=== PATIENT | male | born 1980 | race Caucasian/White ===

== ENCOUNTER 2024-01-16 21:39 | Inpatient (IN) | payer OTHER, SELFPAY ==
[2024-01-16] VITALS (9 sets, daily range): BP systolic 148–169; BP diastolic 108–119; BMI 18.7
--- NOTE | 2024-01-16 15:00 | ED.GENMED ---
History of Present Illness
General
Chief Complaint: Cardiac Symptoms
Time Seen by Provider: 01/16/24 15:00
Travel History
Have you had any contact with someone who has COVID-19?: No
Do you have any symptoms of coronavirus? Fever > 100 degrees, chills, cough, shortness of breath, sore throat, loss of taste or smell, muscle aches, or headache?: Yes
Symptoms:: SOB
History of Present Illness
History of Present Illness:
HPI: Patient presents with palpitations with shortness of breath over the last couple days. This is associated with weakness. He reportedly had a heart catheterization in November at [facility]. He went to [facility] because that is where his doctor
for scleroderma is located. He states that the catheterization showed pulmonary pressures over 50 and had a 'leaky valve in the right side of the heart'. He is on mycophenolate, amlodipine, and hydroxychloroquine. He did lose weight over the last
several months but started to put on some weight after starting protein shakes.
EXAM:
GENERAL: The patient appears somewhat weak and debilitated and older than age
HEENT: Slightly dry oral mucosa
CARDIOVASCULAR: 3 out of 6 systolic murmur in the left lower sternal, borderline tachycardia heart rate with frequent ectopy, No chest wall tenderness
PULMONARY: The patient does not appear to be in any significant respiratory distress but is mildly tachypneic, breath sounds are somewhat decreased with shallow effort
ABDOMEN: Soft with no peritoneal signs, no tenderness
NEUROLOGIC: Fair strength all extremities, no coordination deficits, fingers consistent with rheumatoid arthritis
PSYCHIATRIC: Appropriate mental status, normal insight and judgement
EXTREMITIES: Nontender, trace bilateral lower edema, moves all extremities equally, rheumatoid arthritis changes noted
SKIN: No rash, no lesions
ED COURSE:
3:15 PM: I initially evaluated patient
NUMBER AND COMPLEXITY OF PROBLEMS ADDRESSED AT THE ENCOUNTER
� Chronic conditions affecting care: High blood pressure, pulmonary hypertension / scleroderma /interstitial lung disease
� Acute Exacerbation and/or Progression of Chronic Illness: This is a subacute problem/worsening
� Differential Diagnosis includes: Exacerbation of pulmonary hypertension,
AMOUNT AND/OR COMPLEXITY OF DATA TO BE REVIEWED AND ANALYZED
� I performed an independent evaluation of and my interpretation is:
EKG: Sinus 104, polymorphic PVCs with 1 couplet, there is some T wave abnormality noted in V3 through V5
CT:
X-rays: Personally viewed x-ray and agree with radiologist interpretation of bibasilar reticular interstitial opacities most suspicious for chronic fibrosis
Laboratory Studies: White count 9.3, hemoglobin 10.1, troponin elevated 0.092, BNP over 27,000, potassium magnesium very low
Other:
� Review of other/old records: I have asked our director of pulmonary unit to try to get records from [facility]
� Clinical information was obtained by an independent historian: No old records available for review in [facility]
� Prescriptions/Medications Considered but not given:
� Further testing considered but not performed:
RISK OF COMPLICATIONS AND/OR MORBIDITY OR MORTALITY OF PATIENT MANAGEMENT
� Social determinants of health affecting care: Lives at home
� Discussion with other providers: Discussed with cardiology here who feels patient needs to be transferred to tertiary care facility. Spoke to [place] transfer center for [facility] at 5:38 PM. I spoke to the internal medicine
attending who asked me to talk to cardiology attending who asked me to talk to pulmonary who asked me to transfer to a higher level pulmonary facility such as [facility]. I spoke to Dr. Patrick at [facility] and I arranged to have more information sent from
the pulmonary attending at [facility] to [facility]. Ultimately the patient will be accepted to the heart failure service.
� Escalation of care including admission/observation vs risk of discharge considered: The patient appeared generally weak at first and I did give a little bit of fluid at first however BNP came back at over 27,000. Will plan
diuresis now. Replacing magnesium and potassium. Elevated creatinine noted. Blood pressures have been elevated here. He is tachypneic. Ultimately, the patient will be accepted at [facility]. At about 8:45 PM, [facility] tells us that the patient will
not be admitted tonight. Dr. Patrick is the pulmonary hypertension specialist that I spoke to at [facility] who also states they accept the patient and he also contacted the heart failure specialist at [facility] as well. The patient's blood pressure has
remained elevated. Will try nitroglycerin paste as the patient is as patient is persistently hypertensive. As patient will not get a bed tonight at [facility], Dr. Reynolds accepts here for further management.
Phy Exam
Physical Exam
Physical Exam:
See HPI
Course
Orders/Labs/Results
Orders:
Orders
01/16/24 13:54
Electrocardiogram (*1) Urgent
Reason for Study: Palpitations
EKG- Treatment ONCE
01/16/24 15:03
Cardiac Monitoring- Treatment ONCE
01/16/24 15:18
CR Chest - 2 Views Urgent
Comment:
Reason For Exam: sob h/o pulm htn
01/16/24 15:19
0.9% Sodium Chloride 500 ml [Nss] 500 ml IV BOLUS
01/16/24 16:14
Complete Blood Count/With Diff Urgent
Comprehensive Metabolic Panel Urgent
Direct Bilirubin Urgent
Magnesium Urgent
NT-proBNP Urgent
TSH Reflex To Free T4 Urgent
Troponin I Urgent
01/16/24 16:51
Furosemide [Lasix] 40 mg IV NOW STA
01/16/24 17:14
Magnesium Sulfate 4 Gram/100Ml [Magnesium Sulfate] 4 gram in 100 ml IV NOW
Potassium Chloride [KCl] 40 meq Dextrose 5%/Water 250 ml [D5w] 250 ml IV NOW
01/16/24 21:19
Nitroglycerin Ointment [Nitro-Bid] 1 inch TOPICAL NOW STA
01/16/24 22:00
Flush (0.9% Sodium Chloride) [Flush (Nss)] See Dose Instructions IV PER PROTOCOL
Abnormal Lab Results
02/18/24
16:14
RBC 3.15 L 10^6/uL
(4.70-6.10)
Hgb 10.1 L g/dL
(13.0-18.0)
Hct 28.8 L %
(39.0-52.0)
MCH 32.1 H pg
(27.0-31.0)
RDW 18.8 H %
(11.5-14.5)
Abs Immat Gran (auto) 0.1 H 10^3/uL
(0-0.05)
Absolute Neuts (auto) 7.3 H 10^3/uL
(1.4-6.5)
Immature Gran % 0.6 H %
(0-0.5)
Neutrophils % 79.2 H %
(42.2-75.2)
Lymphocytes % 14.5 L %
(20.5-51.1)
Potassium 3.0 L mmol/L
(3.5-5.1)
BUN 33 H mg/dl
(9-20)
Creatinine 2.3 H mg/dL
(0.7-1.3)
Magnesium 1.1 L mg/dl
(1.6-2.3)
Total Bilirubin 2.1 H mg/dl
(0.2-1.3)
Direct Bilirubin 1.0 H mg/dl
(0.0-0.4)
Troponin I 0.092 H* ng/ml
Albumin 3.4 L g/dl
(3.5-5.0)
01/16/24 16:14
01/16/24 16:14
Vital Signs
Initial and Last Documented VS:
Initial Vital Signs
Temp Pulse Resp BP Pulse Ox
97.8 F 66 18 169/113 99
01/16/24 13:46 01/16/24 13:46 01/16/24 13:46 01/16/24 13:46 01/16/24 13:46
Last Documented Vital Signs
Temp Pulse Resp BP Pulse Ox
97.8 F 107 19 164/111 98
01/16/24 13:46 01/16/24 21:15 01/16/24 21:15 01/16/24 21:00 01/16/24 21:15
*Critical Care Note
Total Time (30-74mins, 75-104mins- exclusive of procedures): Not Applicable
ED Attending Note
-
Portions of this chart may have been created with voice recognition software.� Occasional wrong word or��sound alike� substitutions may have occurred due to the inherent limitations of voice recognition software.
Discharge Plan
Departure
Patient Disposition: Admit
Date of Disposition: 01/16/24
Time of Disposition: 17:08
Presentation/result/management discussed w/ accepting MD/DO: Hospitalist
Discharge Problem:
Pulmonary hypertension
Prescriptions:
No Action
amlodipine 5 mg Tablet
5 mg PO DAILY
mycophenolate mofetil 500 mg tablet
500 mg PO BID
omeprazole 20 mg Capsule,Delayed Release(Dr/Ec)
20 mg PO DAILY
hydroxychloroquine 200 mg Tablet
300 mg PO DAILY
cholecalciferol (vitamin D3) 25 mcg (1,000 unit) Tablet
25 mcg PO DAILY PRN (Reason: supplement)
Referrals:
Hernán Branch MD [Family Provider] -
Interventions
Interventions:
*Risk Screen - Suicide Last Done: 01/16/24 15:26
*General Assessment Last Done: 01/16/24 15:27
*Neglect/Abuse Screening Last Done: 01/16/24 15:26
*ED COVID-19 Vaccine History Last Done: 01/16/24 13:46
ED- Pulmonary Assessment Last Done: 01/16/24 15:26
ED- Cardiac Assessment Last Done: 01/16/24 15:26
[2024-01-16] MEDS: NSS 500 IV (16:25)
[2024-01-16 16:26] LABS: % Basophils 0.4 % (0-2); % Eosinophils 0.3 % (0-6); % Immature Granulocytes 0.6 % (0-0.5); % Lymphocytes 14.5 % (20.5-51.1); % Neutrophils 79.2 % (42.2-75.2); Absolute Immature Granulocytes 0.1 10^3/uL (0-0.05); Absolute Lymphocytes 1.3 10^3/uL (1.2-3.4); Absolute Monocytes 0.5 10^3/uL (0.1-0.6); Absolute Neutrophils 7.3 10^3/uL (1.4-6.5); Hematocrit 28.8 % (39.0-52.0); Hemoglobin 10.1 g/dL (13.0-18.0); Mean Corp Hgb Conc. 35.1 g/dL (33.0-37.0); Mean Corpuscular Hgb 32.1 pg (27.0-31.0); Mean Corpuscular Volume 91.4 fL (80.0-94.0); Mean Platelet Volume 9.3 fL (7.4-10.4); Nucleated Red Blood Cells % 0 % (-); Platelet Count 161 10^3/uL (130-400); Red Blood Cell Count 3.15 10^6/uL (4.70-6.10); Red Cell Dist. Width 18.8 % (11.5-14.5); White Blood Cell Count 9.3 10^3/uL (4.8-10.8)
[2024-01-16 16:49] LABS: NT-proBNP > 27000 pg/ml; Troponin I 0.092 ng/ml
[2024-01-16 16:56] LABS: ALT (SGPT) 25 U/L (0-50); AST (SGOT) 43 U/L (17-59); Albumin 3.4 g/dl (3.5-5.0); Alkaline Phosphatase 88 U/L (38-126); Blood Urea Nitrogen 33 mg/dl (9-20); Calcium 9.2 mg/dl (8.4-10.2); Carbon Dioxide 24 mmol/L (22-30); Chloride 99 mmol/L (98-107); Glucose 80 mg/dl (70-99); Magnesium 1.1 mg/dl (1.6-2.3); Sodium 135 mmol/L (135-145); Total Bilirubin 2.1 mg/dl (0.2-1.3); Total Protein 7.6 g/dl (6.3-8.2); eGFR 35.47
[2024-01-16] MEDS: LASIX 40 MG IV (17:00)
[2024-01-16 17:08] LABS: TSH Reflex To Free T4 3.23 uIU/ml (0.47-4.68)
[2024-01-16] MEDS: KCL 270 MEQ IV (17:27)
[2024-01-16] MEDS: MAGNESIUM SULFATE 100 IV (17:31)
[2024-01-16] MEDS: NITRO-BID 1 INCH TOPICAL (21:22)
--- NOTE | 2024-01-16 21:23 | HPS.HSE ---
Addendum entered and electronically signed by Gilson Reynolds MD 01/17/24 21:46:
DCA card aware upon admission - consult is depend upon how soon partient is going to [facility]
�
Original Note:
Family Physician
-
Family Physician: Hernán rBanch MD
Chief Complaint
-
fatigue, weakness.
History of Present Illness
43M HX Scleroderma, on mycophenolate, amlodipine, and hydroxychloroquine recent card cath in [facility] , report severe PHT PASP over 50,Valvular leahage at Heart at [facility] in Nov pw fatigue, weakness. ER noted PVCs, low K and Low Mg. and Renal
failure. K and Mg are repleted. Reported shortness of breath over the last couple days. He did lose weight over the last several months but started to put on some weight after starting protein shakes.
DCA card suggests TF to tertiary center.
Per ER attd , patiant is accepted by Dr. Patrick at [facility]
ER attd will complete papar work
Ultimately the patient will be accepted to the heart failure service.
Medical History
Past Medical History
Past Medical History: Reports Other (scleroderma, PHT)
Past Surgical History: Reports Other
Social History
Tobacco: Non-smoker
Alcohol: None
Drug: None
Family History
Family History: Not pertinent
Allergies / Home Medications
Allergies reflects when Allergies were last updated in [employer].
Home Medications with original date entered in [employer]
Allergy/Medication List:
Allergies
Allergy/AdvReac Type Severity Reaction Status Date / Time
amoxicillin Allergy Anaphylaxis Verified 01/16/24 13:46
Penicillins Allergy Anaphylaxis Verified 01/16/24 13:46
Home Medications
amlodipine 5 mg tablet 5 mg PO DAILY 01/16/24
cholecalciferol (vitamin D3) 25 mcg (1,000 unit) tablet 25 mcg PO DAILY PRN supplement 01/16/24
hydroxychloroquine 200 mg tablet 300 mg PO DAILY 01/16/24
mycophenolate mofetil 500 mg tablet 500 mg PO BID 01/16/24
omeprazole 20 mg capsule,delayed release 20 mg PO DAILY 01/16/24
Review of Systems
-
Constitutional: Reports Fatigue
EENT: Reports No Symptoms
Respiratory: Reports See HPI
Cardiac: Reports See HPI
Abdomen/GI: Reports No Symptoms
: Reports No Symptoms
Musculoskeletal: Reports No Symptoms
Skin: Reports No Symptoms
Neurological: Reports No Symptoms
Endocrine: Reports No Symptoms
Hematologic/Lymphatic: Reports No Symptoms
Psych: Reports No Symptoms
Physical Exam
Vital Signs
Vital Signs
Temp Pulse Resp BP Pulse Ox
97.8 F 107 19 164/111 98
01/16/24 13:46 01/16/24 21:15 01/16/24 21:15 01/16/24 21:00 01/16/24 21:15
Physical Exam
General: Other (see below )
Laboratory Results
-
01/16/24 16:14
01/16/24 16:14
Laboratory Results
Total Bilirubin 2.1 mg/dl (0.2-1.3) H 01/16/24 16:14
AST 43 U/L (17-59) 01/16/24 16:14
ALT 25 U/L (0-50) 01/16/24 16:14
Alkaline Phosphatase 88 U/L (38-126) 01/16/24 16:14
Troponin I 0.092 ng/ml H* 01/16/24 16:14
Data Reviewed
-
Diagnostic Radiology: Report Reviewed by me
Medical Tests (Nuc Med, Echo, EKG etc): Report Reviewed by me
Lab Data: Labs Reviewed by me
Impression/Plan
-
Reviewed VS: Afebrile, ST, 150/110
PE
Gen: weak and frail looking
HEENT: dry OM
Neck:
Lungs: significant respiratory distress but is mildly tachypneic
Cor: ST, systolic murmur in the left lower sternal,
Abdomen: Soft with no peritoneal signs, no tenderness
TERRY CLOTH CUTTER HAND: AAO3
MS: trace bilateral lower edema,
Psych:nl mood
Data
Hgb 10.1
Plt 160
K 3
Mg 1.1
Cr 2.2
eGFR 35
TPNI 0.092
proBNP > 27 K
CXR
Bibasilar reticular interstitial opacities most suspicious for chronic fibrosis.
Nl TSH
EKG report
SINUS TACHYCARDIA WITH FREQUENT , AND CONSECUTIVE PREMATURE VENTRICULAR
COMPLEXES
LEFT ATRIAL ENLARGEMENT
INCOMPLETE RIGHT BUNDLE BRANCH BLOCK
ST and T WAVE ABNORMALITY, CONSIDER LATERAL ISCHEMIA
ABNORMAL ECG
NO PREVIOUS ECGS AVAILABLE
No prior admission to :
ASSESSMENT & PLAN
[facility]/ Dr. Dr. Patrick, eventually to HF service
Completed papar work by Dr Short ER
Dyspnea , Fatigue, weakness and effort intolerance with trace bilateral lower edema,
Suspect decompensated RHF insetting of Pul HTN 2/2 underlying scleroderma
Plus or minus Biventricular HF due to interventricular dependency suggested by significant pro BNP > 27K reflects very high LVEDP
- cont. IV Lasix 40 daily
- daily BMP, IPS and Wt
- [facility] card aware - consult is depend upon availably of bed [facility]
Renal Insufficiency suspect cardiorenal syndrome due to acute RHF plus or minus Biventricular HF
- F/U daily BMP with IV diuresis
- To consider Renal consult in AM if he is still around
Hypokalemia s/p IV KCL 40
Hypomagnesemia s/p IV Mg
Underlying PHT- severe ?
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
- cont. mycophenolate, amlodipine, and hydroxychloroquine
DVT Px: SQH
Code: Full
IMU
[2024-01-16] MEDS: TYLENOL 1000 MG PO (21:36)
--- NOTE | 2024-01-16 22:30 | PTCARENOTE ---
Pt arrived from ED via stretcher,ambulated x1 assist to bed. c/o mild dizziness while oob. aaox3, cooperative. denies cp or sob. pox 98% on RA. oriented to room. call correa within reach. girlfriend at the bedside.
[2024-01-17] VITALS (26 sets, daily range): BP systolic 144–197; BP diastolic 90–134; BMI 18.8
[2024-01-17] MEDS: APRESOLINE 5 MG IV ×4 (03:16→20:21)
[2024-01-17] MEDS: TYLENOL 650 MG PO (03:16)
[2024-01-17 03:39] LABS: % Basophils 0.6 % (0-2); % Eosinophils 1.3 % (0-6); % Immature Granulocytes 0.5 % (0-0.5); % Lymphocytes 16.5 % (20.5-51.1); % Monocytes 5.9 % (1.7-9.3); % Neutrophils 75.2 % (42.2-75.2); Absolute Basophils 0.1 10^3/uL (0-0.2); Absolute Eosinophils 0.1 10^3/uL (0-0.7); Absolute Lymphocytes 1.4 10^3/uL (1.2-3.4); Absolute Monocytes 0.5 10^3/uL (0.1-0.6); Absolute Neutrophils 6.4 10^3/uL (1.4-6.5); Hematocrit 25.7 % (39.0-52.0); Hemoglobin 9.2 g/dL (13.0-18.0); Mean Corp Hgb Conc. 35.8 g/dL (33.0-37.0); Mean Corpuscular Hgb 32.2 pg (27.0-31.0); Mean Corpuscular Volume 89.9 fL (80.0-94.0); Nucleated Red Blood Cells % 0 % (-); Platelet Count 161 10^3/uL (130-400); Red Blood Cell Count 2.86 10^6/uL (4.70-6.10); Red Cell Dist. Width 18.6 % (11.5-14.5); White Blood Cell Count 8.5 10^3/uL (4.8-10.8)
[2024-01-17 04:21] LABS: Calcium 8.8 mg/dl (8.4-10.2)
[2024-01-17] MEDS: CELLCEPT 500 MG PO ×2 (05:53→20:20)
[2024-01-17] MEDS: NORVASC 5 MG PO (05:53)
[2024-01-17] MEDS: LASIX 40 MG IV (05:54)
[2024-01-17] MEDS: HEPARIN SC (05:57)
[2024-01-17] MEDS: HEPARIN 5000 UNITS SC ×2 (05:57→20:21)
[2024-01-17] MEDS: CELLCEPT PO (05:57)
[2024-01-17] MEDS: NORVASC PO (05:57)
[2024-01-17] MEDS: DILAUDID 0.5 MG IV (06:03)
--- NOTE | 2024-01-17 06:09 | PTCARENOTE ---
Pt continues to c/o headache, states 'it is hurting behind my right eye.' BP: 160/116. Millicent GAINES made aware. Dilaudid x1 now ordered and ordered to give am medications now. Pt aware.
--- NOTE | 2024-01-17 08:51 | WOUNDNOTE ---
R FOOT (MEDIAL PLANTAR)
--- NOTE | 2024-01-17 08:51 | WOUNDNOTE ---
Homer BENZ (BONE EXPOSED)(shadow at L side of photo)
--- NOTE | 2024-01-17 08:51 | WOUNDNOTE ---
R 2ND TOE (MEDIAL)
--- NOTE | 2024-01-17 08:52 | WOUNDNOTE ---
L FOOT (PLANTAR MEDIAL)
--- NOTE | 2024-01-17 08:53 | WOUNDNOTE ---
[facility] RN note: Patient admitted with HF, DEREK vs CKD. Patient lives with his girlfriend.
See H&P for complete history.
PMH: PHT, scleroderma on mycophenolate, cardiac cath, 11/2023, renal failure.
Wound Location and type/assessment: Patient admitted with: R judge full thickness ulcer to yellow colored bone, small yellow drainage with mild odor. Patient stated he's had a couple of months. He stated he had a spider bite 10 years ago but not at
that location. R and L medial planter black scabbed abrasions and R medial 2nd toe black scabbed abrasion from trauma. Trace LE edema (L>R). +Palpable pedal pulses. Skin discolored red on sacrum,perineum, groin folds suspect from dry skin/psoriasis?
Appetite: Fair. Patient is thin.
Pressure redistribution devices in place: Centrella Max air. Patient is mobile.
Plan: Dressing changed RLE. Patient instructed pressure injury prevention measures.
Will confirm orders with hospitalist and update nurse.
Care plan to be updated and will follow as needed.
Note to case management requested for discharge: VN if patient qualifies.
Recommend follow up at wound care center upon discharge.
--- NOTE | 2024-01-17 09:05 | WOUNDNOTE ---
[facility] RN note: Updated Dr. Patino re: R judge wound to bone suspect chronic osteomyelitis, trace LE edema L>R. Dr. Patino stated patient is going to be transferred to [place] and he will pass this information onto physician at [place]. Dr. Patino approved
local wound care and bilateral knee high Tubigrip as tolerated (may remove q hs).
--- NOTE | 2024-01-17 09:06 | W.PN.HOSP.TC ---
Today's Communication/Plan
-
[facility]charge to [facility] when bed is available
Assessment / Plan
Assessment / Plan
Dyspnea , Fatigue,� weakness� and effort intolerance� with trace bilateral lower edema,
Suspect decompensated RHF insetting of Pul HTN 2/2 underlying scleroderma
Plus or minus Biventricular HF due to interventricular dependency suggested by significant� pro BNP > 27K reflects very high LVEDP �
- cont. IV Lasix 40 daily
- daily BMP, I&O's and Wt
- DCA card aware - consult is depend upon availably of bed at [facility]�
Renal Insufficiency suspect cardiorenal syndrome due to acute RHF plus or minus Biventricular HF
- F/U daily BMP with IV diuresis
- To consider Renal consult if he is still around
Hypertension ? Primary-elevated this morning. Patient currently on Norvasc at 5 mg will uptitrate as needed.
Hypokalemia-replete
Hypomagnesemia-replete
Underlying PHT- severe ?
Suspect Group IV� PHT with unclear and or due to systemic disorder like scleroderma
- cont. mycophenolate, amlodipine, and hydroxychloroquine
�
DVT Px: SQH
Code: Full
IMU
Patient is accepted to [facility]/ Dr.� Dr. Patrick, eventually to HF service
Completed papar work by Dr Short [facility]
Anticipated Discharge: Today
Subjective/Interval History
-
Date of Service: January 17, 2024
Admitted to last night for fatigue weakness.
Suspect related to severe pulmonary hypertension. Case was discussed with [facility] and patient has been accepted. Currently here pending bed availability.
He feels little loopy secondary to Dilaudid he received for pain. His pain is more headache.
With Lasix has been peeing quite a bit feels his breathing is better.
No chest pain.
Today he has his stomach reflux symptoms. He also feels nauseous with it. No abdominal pain.
Objective Data
-
Labs:
Laboratory Results
01/17/24 01/17/24
03:21 09:02
WBC 8.5 Pending
Hgb 9.2 L Pending
Hct 25.7 L Pending
Plt Count 161 Pending
Sodium Pending
Potassium Pending
Chloride Pending
Carbon Dioxide Pending
BUN Pending
Creatinine Pending
Glucose Pending
Calcium 8.8 Pending
Vital Signs:
Vital Signs
Temp Pulse Resp BP Pulse Ox
97.4 F 103 17 160/116 87
01/17/24 03:23 01/17/24 03:00 01/17/24 03:00 01/17/24 05:54 01/17/24 03:00
I&O
01/16/24 01/17/24 01/18/24
06:59 06:59 06:59
Output Total 600 / 600
Balance -600 / -600
Review of Systems
-
Constitutional: Denies Fever
EENT: Denies Sore Throat
Respiratory: Reports Trouble Breathing (improved)
Cardiac: Denies Chest Pain or Palpitations
Neuro: Denies Dizzy
Physical Exam
-
General: No Apparent Distress
HEENT: Moist Mucous Membranes
Respiratory: Clear to Auscultation
Cardiac: Regular Rhythm and S1/S2; Negative Tachycardic
GI: Soft and Nontender
Neuro: AO x 3
Data Reviewed
-
Labs: Labs Reviewed by me
--- NOTE | 2024-01-17 09:37 | PTCARENOTE ---
Vital signs pulled over from 0300 from previous shift. Cannot verify accuracy.
[2024-01-17] MEDS: PROTONIX 20 MG PO (09:43)
[2024-01-17] MEDS: PLAQUENIL 300 MG PO (09:43)
[2024-01-17 10:07] LABS: Hematocrit 27.7 % (39.0-52.0); Hemoglobin 9.5 g/dL (13.0-18.0); Mean Corp Hgb Conc. 34.3 g/dL (33.0-37.0); Mean Corpuscular Hgb 32.3 pg (27.0-31.0); Mean Corpuscular Volume 94.2 fL (80.0-94.0); Mean Platelet Volume 9.7 fL (7.4-10.4); Platelet Count 163 10^3/uL (130-400); Red Blood Cell Count 2.94 10^6/uL (4.70-6.10); Red Cell Dist. Width 18.6 % (11.5-14.5); White Blood Cell Count 8.2 10^3/uL (4.8-10.8)
[2024-01-17 10:36] LABS: Blood Urea Nitrogen 33 mg/dl (9-20); Calcium 9.1 mg/dl (8.4-10.2); Carbon Dioxide 25 mmol/L (22-30); Chloride 97 mmol/L (98-107); Estimated Creatinine Clearance 35 ml/min; Glucose 120 mg/dl (70-99); Magnesium 2.2 mg/dl (1.6-2.3); Potassium 3.1 mmol/L (3.5-5.1); Sodium 134 mmol/L (135-145); eGFR 32.09
--- NOTE | 2024-01-17 11:34 | CM ---
Patient with Hx Scleroderma with Dx suspected decompensated RHF in setting of pulmonary hypertension, suspected cardiorenal syndrome.
Met with patient and SO Genna;
the patient resides with his SO in a 2 story house with 2 FRANCIA.
He had been independent in ADLs and ambulation.
He has no DME or prior VN.
PCP - Hernán Branch
Pharmacy - [facility]
The patient and SO are aware of plan to transfer to [facility].
Ambulance forms completed - on chart.
Plan transfer to [facility] when bed available.
[2024-01-17] MEDS: KCL 270 MEQ IV (18:07)
--- NOTE | 2024-01-17 19:51 | PTCARENOTE ---
Pt is still awaiting ready bed at [facility], T3 transfer center called to request update. Pt and family members at bedside updated as well. Pt has remained AOx3- pleasant and cooperative, 1 episode nausea/vomiting with brown emesis, Dr. Patino aware. K
Isrrael infusing for K+of 3.1 this afternoon. Pt with SR on tele, frequent PVCs, occ in trigeminy, BPs remain elevated. PRN Hydralazine administered as needed for HTN-please see MAR for details. Call correa in reach, no needs communicated at this time.
Continuing to closely monitor.
[2024-01-18] VITALS (19 sets, daily range): BP systolic 142–172; BP diastolic 105–125; BMI 18.2
[2024-01-18] MEDS: APRESOLINE 5 MG IV ×2 (01:46→10:49)
--- NOTE | 2024-01-18 05:20 | PTCARENOTE ---
assumed care of patient, pt is able to make needs known. VSS. CELESTIN called this AM for patient status update. no bed available yet.
[2024-01-18 05:41] LABS: Hemoglobin 9.5 g/dL (13.0-18.0); Mean Corp Hgb Conc. 33.9 g/dL (33.0-37.0); Mean Corpuscular Hgb 31.9 pg (27.0-31.0); Mean Platelet Volume 9.8 fL (7.4-10.4); Platelet Count 165 10^3/uL (130-400); Red Blood Cell Count 2.98 10^6/uL (4.70-6.10); Red Cell Dist. Width 19.2 % (11.5-14.5); White Blood Cell Count 8.1 10^3/uL (4.8-10.8)
[2024-01-18 06:09] LABS: Blood Urea Nitrogen 35 mg/dl (9-20); Calcium 9.3 mg/dl (8.4-10.2); Carbon Dioxide 28 mmol/L (22-30); Chloride 96 mmol/L (98-107); Estimated Creatinine Clearance 33 ml/min; Glucose 106 mg/dl (70-99); Potassium 3.4 mmol/L (3.5-5.1); Sodium 135 mmol/L (135-145); eGFR 30.62
--- NOTE | 2024-01-18 08:36 | W.PN.HOSP.TC ---
Addendum entered and electronically signed by Drew Patino MD 01/21/24 15:34:
Per ASPEN/AND guidelines, pt meets for mild malnutrition in the context of chronic illness as evidenced by 21 .1% weight loss x 1 year, muscle loss.
Suspicion was acute on chronic RHF on admission
Addendum entered and electronically signed by Drew Patino MD 01/18/24 14:49:
Called accepting team at [facility] he spoke with Dr. Ty
With the cardiology updated about the concern of renal crisis with scleroderma and initiation of OLU inhibitor's. Went over the blood pressure changes and the creatinine changes as well. There are still waiting for a bed.
Original Note:
Today's Communication/Plan
-
Consult renal
Check UA
CW rest of treatments
Hold lasix
Assessment / Plan
Assessment / Plan
Dyspnea , Fatigue,� weakness� and effort intolerance� with trace bilateral lower edema,
Suspect decompensated RHF insetting of Pul HTN 2/2 underlying scleroderma
Plus or minus Biventricular HF due to interventricular dependency suggested by significant� pro BNP > 27K
Improved weight by 4 pounds. Feeling better with regards to shortness of breath.
- on IV Lasix 40 daily - will hold till reviewed by nephro -see below
- Pt wt last month is 127 lbs and now 137 lb but with raising Cr and respiratory thompson being stable and oxygenating okay would hold Lasix today
- daily BMP, I&O's and Wt
- DCA card aware - consult is depend upon availably of bed at [facility]�
DEREK on CKD
Last known Cr 0.66 from 11/2023 from my patient chart on his phone
With elevated blood pressure I am concerned about her scleroderma renal crisis.
Check urinalysis
Consult nephrology
Hypertension ? Primary-uncontrolled. Patient currently on Norvasc at 5 mg. Concerned about renal scleroderma crisis. Will consult nephrology and consider OLU inhibitors.
Hypokalemia-replete
Hypomagnesemia-repleted
Underlying PHT- PHT with unclear and or due to systemic disorder like scleroderma
Not on specific treatments
Scleroderma
- cont. mycophenolate, and hydroxychloroquine
�
DVT Px: SQH
Code: Full
IMU
Patient is accepted to [facility]/ Dr.� Dr. Patrick, eventually to service
Completed papar work by Dr Short [facility]
DW RN
DW Renal
Anticipated Discharge: Today
Subjective/Interval History
-
Date of Service: January 18, 2024
Patient is feeling improved compared to what he was at home. His breathing is improved.
He had nausea and vomiting yesterday which he thinks is related to pain medication. Later on in the day he was able to eat and keep everything down.
Denies any chest pain or palpitations.
Objective Data
-
Labs:
Laboratory Results
01/18/24
05:22
WBC 8.1
Hgb 9.5 L
Hct 28.0 L
Plt Count 165
Sodium 135
Potassium 3.4 L
Chloride 96 L
Carbon Dioxide 28
BUN 35 H
Creatinine 2.6 H
Glucose 106 H
Calcium 9.3
Vital Signs:
Vital Signs
Temp Pulse Resp BP Pulse Ox
97.5 F 111 21 159/120 98
01/18/24 07:45 01/18/24 08:00 01/18/24 08:00 01/18/24 08:00 01/18/24 08:00
I&O
01/17/24 01/18/24 01/19/24
06:59 06:59 06:59
Intake Total 580 / 580
Output Total 600 / 600
Balance -
Review of Systems
-
Constitutional: Denies Fever or Chills
EENT: Denies Sore Throat
Respiratory: Denies Cough
Abdomen/GI: Denies Abdominal Pain
Neuro: Denies Dizzy
Physical Exam
-
General: No Apparent Distress
HEENT: Moist Mucous Membranes
Respiratory: Crackles (Here few basilar crackles more evident in the left base today) and Non Labored Respirations; Negative Wheezes or Accessory Resp Muscle Use
Cardiac: Regular Rhythm and S1/S2
GI: Soft
Neuro: AO x 3
Data Reviewed
-
Labs: Labs Reviewed by me
[2024-01-18] MEDS: PLAQUENIL 300 MG PO (08:40)
[2024-01-18] MEDS: HEPARIN 5000 UNITS SC ×2 (08:40→19:12)
[2024-01-18] MEDS: CELLCEPT 500 MG PO ×2 (08:41→19:12)
[2024-01-18] MEDS: PROTONIX 20 MG PO (08:41)
[2024-01-18] MEDS: NORVASC 5 MG PO ×2 (08:45→19:13)
--- NOTE | 2024-01-18 08:52 | PN.CDI ---
CDI
- -
CDI:
Physician Documentation Request
Admit Date: 01/16/24 21:39
Dear Doctor Sukumar,
Patient admitted for pulmonary hypertension.
Please review the following and provide your response in the progress notes.
Clinical Indicators:
Height:6' 1'
Weight:137 lbs
BMI:18.2
Other Clinical Notes:
ED Physician Documentation: 'He did lose weight over the last several months but started to put on some weight after starting protein shakes....The patient appears somewhat weak and debilitated and older than age'
If possible, please provide an associated diagnosis related to the abnormal BMI, such as:
Cachectic
Underweight
BMI is not significant
Other
BMI < or = to 19
Underweight
Weight Loss
Cachectic
Anorexia
Use of terms such as suspected, likely, concern for, or probable (associated with a specific diagnosis that is being evaluated, monitored, or treated as if it exists) are acceptable and can be coded in the inpatient setting, when documented at the
time of discharge.
Thank you,
Aarti Mendez RN, BSN
CDI Specialist
Available via [place] text
Please use your independent medical judgment in providing your response.
--- NOTE | 2024-01-18 08:57 | PN.CDI ---
CDI
- -
CDI:
Physician Documentation Request
Admit Date: 01/16/24 21:39
Dear Doctor Sukumar,
Patient admitted with pulmonary hypertension.
01/16 Hospitalist PN: 'Suspect decompensated RHF insetting of Pul HTN 2/2 underlying scleroderma
Plus or minus Biventricular HF due to interventricular dependency suggested by significant� pro BNP > 27K reflects very high LVEDP'
Clarify which of the following accurately represents the acuity of the right heart failure. Possible options might include:
Acute
Acute on chronic
Other
Use of terms such as suspected, likely, concern for, or probable (associated with a specific diagnosis that is being evaluated, monitored, or treated as if it exists) are acceptable and can be coded in the inpatient setting, when documented at the
time of discharge.
Thank you,
Aarti Mendez RN, BSN
CDI Specialist
Available via [place] text
Please use your independent medical judgment in providing your response.
--- NOTE | 2024-01-18 10:20 | PN.CDI ---
CDI
- -
CDI:
Physician Documentation Request
Admit Date: 01/16/24 21:39
Dear Doctor Sukumar,
Patient admitted for pulmonary hypertension.
01/17 Medical Device Assessment: 'Per ASPEN/AND guidelines, pt meets for mild malnutrition in the context of chronic illness as evidenced by 21 .1% weight loss x 1 year, muscle loss.'
If possible, please provide in your progress notes, additional specificity regarding the severity of the malnutrition:
Mild malnutrition
Other
Use of terms such as suspected, likely, concern for, or probable (associated with a specific diagnosis that is being evaluated, monitored, or treated as if it exists) are acceptable and can be coded in the inpatient setting, when documented at the
time of discharge.
Thank you,
Aarti Mendez RN, BSN
CDI Specialist
Available via [place] text
Please use your independent medical judgment in providing your response.
--- NOTE | 2024-01-18 10:30 | CON.MD ---
Consultation - Medical
-
IMP:
DEREK Last known Cr 0.66 from 12/23/2023 from my patient chart on his phone
Hypertension -new
Hypokalemia
Hypomagnesemia
Underlying PHT
Scleroderma and RA- mycophenolate,� and hydroxychloroquine follow at [facility]
Plan:
A/w sob, palpitations and HTN
[place] to have mild hypervolemia s/p lasix mild improvement of symp
BP are significantly high no h/o HTN raises concern of scleroderma renal crisis
AKI_cr baseline 0.6 in Nov now increasing to 2.6, note heart cath done at [facility] on 12/23
reports subjectively non oliguric
check UA, Fena, renal duplex , follow bladder scan
CXR shows fibrosis changes, BNP >27k on admit -will need echo if he still here
HTN-cont CCB, will start ACEI with concern of renal crisis with close monitoring of cr
replace k and mg repleted
cont MMF and HCQ
Await transfer to [facility]
[id number]
[2024-01-18] MEDS: KCL 40 MEQ PO (10:49)
[2024-01-18] MEDS: CAPOTEN 6.25 MG PO ×2 (12:03→19:14)
[2024-01-18 14:19] LABS: Urine Albumin 2+ (Neg - Trace); Urine Bilirubin 1+ (Negative); Urine Character Clear (Clear); Urine Color Yellow; Urine Glucose Negative (Negative); Urine Ketone Negative (Negative); Urine Leukocyte Negative (Negative); Urine Nitrite Negative (Negative); Urine Occult Blood 2+ (Negative); Urine Specific Gravity 1.015 (<1.030); Urine Urobilinogen 2+ (Neg - 1+)
[2024-01-18 14:42] LABS: Urine White Cell 0-2 /HPF (0-5)
[2024-01-18 14:43] LABS: Urine Bacteria Few (Negative)
[2024-01-18 15:28] LABS: Protein/creatinine Ratio 1.9; Urine Protein 199 mg/dl; Urine Sodium 92 mmol/L (30-90)
[2024-01-18] MEDS: LOPRESSOR 25 MG PO (18:04)
--- NOTE | 2024-01-18 19:21 | PTCARENOTE ---
Bed at [facility] assigned -report called- awaiting transport.
--- NOTE | 2024-01-18 19:27 | PTCARENOTE ---
Transport here to take Pt to [facility]. 1999 medications given as ordered. Rt LE wound care complete. All belongings with pt. All questions answered.
--- NOTE | 2024-01-19 07:36 | W.DCSUMMARY ---
Discharge Summary
Discharge Data
Date of Admission: 01/16/24
Date of Discharge: 01/18/24
-
Pending Results: No
Hospital Course
Primary diagnosis:
Uncontrolled hypertension possible scleroderma renal crisis
Pulmonary hypertension with decompensation
Possible left heart failure
Acute kidney injury on chronic kidney disease
Secondary diagnosis:
Hypertension
Pulmonary hypertension
Scleroderma
Hospital course:
44-year-old gentleman with a history of scleroderma and pulmonary hypertension evaluated at [facility] before presented with dyspnea, fatigue, weakness, effort intolerance and trace bilateral lower extremity edema. Initial suspicion was
possible right heart failure decompensation but also concern was if there was a left heart failure to as patient did shortness of breath, elevated BNP and uncontrolled hypertension. In view of complicated cardiac situation and being known to
tertiary care center case was referred to [facility] and was accepted to pulmonary hypertension and heart failure service.
While waiting for his bed he encountered persistent blood pressure elevation. His creatinine a month ago was 0.66 and it was 2.3 on admission. The concern was a scleroderma renal crisis and was seen by nephrology who started him on captopril. He
needed escalation of his antihypertensives- Norvasc was increased and beta-phong was added later. Renal requested renal artery Dopplers which showed increased velocity at the origin of the left renal artery suggestive of significant renal artery
stenosis.
He did feel improved with diuretics but was kept on hold with rising creatinine. He was not hypoxic nor in respiratory distress.
He was discharged to [facility] once bed was available later in the evening.
Consultants on board:
Nephrology-Dr. Meehan
Discharge Plan
-
Patient Disposition: Acute Care Hospital
Discharge Orders:
Discharge Patient (As Directed); Ordered 01/17/24
Ordered By: Drew Patino
Discharge Date and Time
Discharge Date/Time: 01/18/24 19:35
== END 2024-01-18 19:35 | disposition short-term general hospital (02) | DRG 292 ==
LOC: IMU 21:39
PROVIDERS: ADMITTING PHYSICIAN Internal Medicine; ATTENDING PHYSICIAN Internal Medicine; CONSULT PHYSICIAN Internal Medicine; EMERGENCY PHYSICIAN Emergency Medicine; FAMILY PHYSICIAN Family Medicine
DX: I50.813 Acute on chronic right heart failure (principal); E44.1 Mild protein-calorie malnutrition; I13.0 Hypertensive heart and chronic kidney disease with heart failure and stage 1 through stage 4 chronic kidney disease, or unspecified chronic kidney disease; N17.9 Acute kidney failure, unspecified; Z68.1 Body mass index [BMI] 19.9 or less, adult; I27.29 Other secondary pulmonary hypertension; N18.9 Chronic kidney disease, unspecified; M34.9 Systemic sclerosis, unspecified; E87.6 Hypokalemia; E83.42 Hypomagnesemia
CPT/HCPCS: 71046; 80048; 80053; 81003; 81015; 82248; 82310; 82570; 83735; 83880; 84156; 84300; 84443; 84484; 85025; 85027; 93005; 93975; 96361; 96365; 96366; 96367; 96375; 99285; 99406